=== PATIENT | female | born 1970 | race Two or more races ===

== ENCOUNTER 2017-07-04 12:13 | Emergency (ER) | payer MEDICAID ==
[~2017-07-04] VITALS: Ht 165.1 cm; Wt 99.8 kg
[2017-07-04 13:10] LABS: HEMATOCRIT 41.9 % (34.6-47.8); HEMOGLOBIN 13.5 g/dL (11.7-16.4); WHITE BLOOD COUNT 6.7 x10^3/uL (3.4-10)
[2017-07-04 13:23] LABS: ASPARTATE AMINO TRANSFERASE 12 U/L (15-37); BLOOD UREA NITROGEN 12 mg/dL (7-18)
[2017-07-04] MEDS ORDERED: DIAZ10TA PO (13:24)
[2017-07-04] MEDS ORDERED: OXYcodone/APAP 10/325MG TABLET PO ONE (13:30)
[2017-07-04] MEDS ORDERED: LIDOCAINE GEL 2%, 5ML TP ONE (13:30)
[2017-07-04] MEDS ORDERED: LIDOCAINE GEL 2%, 5ML ONE (13:31)
[2017-07-04] MEDS ORDERED: OXYcodone/APAP 10/325MG TABLET ONE (13:32)
[2017-07-04] MEDS ORDERED: ONDANSETRON ODT 4 MG ONE (13:45)
[2017-07-04] MEDS ORDERED: ONDANSETRON ODT 4 MG PO ONE (14:00)
[2017-07-04] MEDS ORDERED: DIAZEPAM 5 MG TABLET ONE (14:15)
[2017-07-04] MEDS ORDERED: DIAZEPAM 5 MG TABLET PO ONE (14:30)
[2017-07-04] MEDS ORDERED: HYDROmorphone 2 MG/ML, 1ML ONE ×2 (14:37→16:16)
[2017-07-04] MEDS ORDERED: HYDROmorphone 1 MG/ML, 1ML IV ONE (15:00)
[2017-07-04] MEDS ORDERED: DIPHENHYDRAMINE 50 MG/ML, 1ML ONE (15:39)
[2017-07-04] MEDS ORDERED: OMNIPAQUE 180 MG/ML, 10ML VIAL ONE (15:40)
[2017-07-04] MEDS ORDERED: DIPHENHYDRAMINE 50 MG/ML, 1ML IVPush ONE (16:00)
[2017-07-04] MEDS ORDERED: HYDROmorphone 2 MG/ML, 1ML IVPush ONE (16:30)
[2017-07-04 16:39] VITALS: BP 107/59
== END 2017-07-04 16:41 | disposition home or self-care (01) ==
LOC: ED 14:35
DX: K60.2 Anal fissure, unspecified (principal); Z90.49 Acquired absence of other specified parts of digestive tract
CPT/HCPCS: 36415; 72193; 80053; 85025; 86850; 86900; 96374; 96375; 96376; 99285; J1170; J1200; Q0162; Q9965